=== PATIENT | male | born 1950 | race Caucasian/White ===

== ENCOUNTER 2016-12-31 10:01 | Outpatient (CLI) | payer MEDICAID, MEDICARE ==
--- NOTE | 2016-12-31 13:05 | DEXA Report ---
DEXA SCAN: 12/31/2016 CLINICAL INDICATION: History of fracture, long-term prednisone use, history of osteopenia. TECHNIQUE: Dual energy x-ray absorptiometry (DXA) was performed on a [employer] system. Regions measured are the AP spine, femoral neck, and, if needed, forearm. COMPARISON: None. In accordance with the International Society for Clinical Densitometry (ISCD) guidelines, data from previous exams may be reanalyzed using current recommendations and techniques. This is done to allow a more accurate basis for comparison with the current study. FINDINGS: The data for the lumbar spine is as follows: REGION BMD (g/cm/cm) T-SCORE Z-SCORE L1 0.816 -2.9 -2.3 L2 0.871 -3.1 -2.5 L3 0.899 -2.8 -2.3 L4 0.998 -2.0 -1.5 TOTAL 0.902 -2.7 -2.1 NOTE: All evaluable vertebrae are used for classification. The data for the hip is as follows: REGION BMD (g/cm/cm) T-SCORE Z-SCORE Neck 0.861 -1.6 -0.5 TOTAL 0.849 -1.7 -1.1 NOTE: The femoral neck or total proximal femur, whichever is lowest, is used for classification. IMPRESSION: THE WHO CLASSIFICATION BASED ON THE INTERNATIONAL REFERENCE STANDARD IS OSTEOPOROSIS. THE FRACTURE RISK IS HIGH. RECOMMENDATION: Patients with diagnosis of osteoporosis or osteopenia should have regular bone mineral density assessment. For those eligible for Medicare, routine testing is allowed once every 2 years. Testing frequency can be increased for patients who have rapidly progressing disease or for those who are receiving medical therapy to restore bone mass. COMMENT: World Health Organization (WHO) definitions for osteoporosis and osteopenia: NORMAL BMD: T-score at -1.0 or higher, fracture risk is low. OSTEOPENIA BMD: T-score between -1.0 and -2.5, fracture risk is increased. OSTEOPOROSIS BMD: T-score at -2.5 or lower, fracture risk high. National Osteoporosis Foundation recommends: 1. Obtain adequate dietary calcium (at least 1200 mg per day) and vitamin D (400 -800 international units per day). 2. Participate, as appropriate, in regular weightbearing and muscle- strengthening exercise. 3. Avoid tobacco use and reduce alcohol and caffeine intake. 4. For more detailed information see the website at www.NOF.org. MTDD
== END 2016-12-31 10:02 | disposition home or self-care (01) ==
LOC: DI 10:01
PROVIDERS: ATTEND Physician Assistant
DX: M81.0 Age-related osteoporosis without current pathological fracture (principal)
CPT/HCPCS: 77080

== ENCOUNTER 2017-07-17 11:23 | Outpatient (CLI) | payer MEDICARE ==
--- NOTE | 2017-07-17 19:45 | XRAY Report ---
DATE OF SERVICE: 07/17/2017 THREE VIEW RIGHT KNEE: 07/17/2017 CLINICAL INDICATION: Pain. AP, lateral, sunrise views of the right knee demonstrate no evidence of fracture or dislocation. The joint spaces are preserved. No effusion is present. IMPRESSION: Normal right knee. TD: 07/17/2017 20:43
== END 2017-07-17 11:24 | disposition home or self-care (01) ==
LOC: DI 11:23
PROVIDERS: ATTEND Physician Assistant
DX: M25.561 Pain in right knee (principal)

== ENCOUNTER 2019-06-09 10:45 | Outpatient (CLI) | payer MEDICARE ==
--- NOTE | 2019-06-09 13:35 | DEXA Report ---
Reason: AGE RELATED OSTEOPOROSIS W/O CURRENT PATH FRACT Procedure Date: 06/09/2019 Accession Number: [id number] / [id number] Procedure: DEX - Dexa Spine and/or Hip CPT Code: Final Report FULL RESULT: EXAM: Dexa Spine and/or Hip DATE: 06/09/2019 11:02 AM CLINICAL HISTORY: FOLLOW-UP OSTEOPOROSIS. Male patient. prison steroid use. TECHNIQUE: Dual energy x-ray absorptiometry (DXA) was performed on a [employer] System. Regions measured are the AP Spine, femoral neck, and if needed forearm. COMPARISON: 12/31/2016. In accordance with the International Society for Clinical Densitometry (ISCD) guidelines, data from previous exams may be reanalyzed using current recommendations and techniques. This is done to allow a more accurate basis for comparison with the current study. FINDINGS: The data for the lumbar spine is as follows: BMD (g/cm/cm) T-SCORE Z-SCORE REGION L1 0.879 -2.3 -1.8 L2 1.011 -1.9 -1.3 L3 1.070 -1.4 -0.8 L4 1.107 -1.1 -0.5 TOTAL 1.022 -1.6 -1.1 NOTE: All evaluable vertebrae are used for classification The data for the hip is as follows: BMD (g/cm/cm) T-SCORE Z-SCORE REGION Neck 0.873 -1.5 -0.3 TOTAL 0.874 -1.6 -0.9 NOTE: The femoral neck or total proximal femur, whichever is lowest, is used for classification. DXA RESULTS SUMMARY: Spine SCAN DATE A[age] BMD CHANGE VS CHANGE VS PREVIOUS PREVIOUS % [birth year]09[birth year]2019 [age] 1[age]022 0.120* 13.3* 12/31/2016 [age] 0.902 * Denotes significant change at the 95% confidence level. Denotes dissimilar scan types or analysis methods. DXA RESULTS SUMMARY: Hip SCAN DATE AGE BMD CHANGE VS CHANGE VS PREVIOUS PREVIOUS % [birth year]09[birth year]2019 [age] 0.874 0.025 2.9 12/31/2016 [age] 0.849 * Denotes significant change at the 95% confidence level. Denotes dissimilar scan types or analysis methods. IMPRESSION: THE WHO CLASSIFICATION BASED ON THE INTERNATIONAL REFERENCE STANDARD IS OSTEOPENIA, REFERENCE LUMBAR SPINE. THE FRACTURE RISK IS INCREASED. Comment: There has been a statistically significant increase in spine bone mineral density since 2017. RECOMMENDATION: Patients with diagnosis of osteoporosis or osteopenia should have regular bone mineral density assessment. For those eligible for Medicare, routine testing is allowed once every 2 years. Testing frequency can be increased for patients who have rapidly progressing disease or for those who are receiving medical therapy to restore bone mass. COMMENT: World Health Organization (WHO) definitions for osteoporosis and osteopenia: NORMAL BMD: T-score at -1.0 or higher, fracture risk is low OSTEOPENIA BMD: T-score between -1.0 and -2.5, fracture risk is increased. OSTEOPOROSIS BMD: T-score at -2.5 or lower, fracture risk is high. National Osteoporosis Foundation recommends: 1. Obtain adequate dietary calcium (at least 1200 mg per day) and vitamin D (400-800 international units per day). 2. Participate, as appropriate, in regular weightbearing and muscle-strengthening exercise. 3. Avoid tobacco use and reduce alcohol and caffeine intake. 4. For more detailed information see the website at www.NOF.org.
== END 2019-06-09 10:46 | disposition home or self-care (01) ==
LOC: DI 10:45
PROVIDERS: ATTEND Registered Nurse
DX: M85.89 Other specified disorders of bone density and structure, multiple sites (principal)
CPT/HCPCS: 77080

== ENCOUNTER 2019-10-29 15:14 | Outpatient (CLI) | payer MEDICARE ==
[2019-10-29] MEDS ORDERED: IOVERSOL 320 50 ML VIAL ONE (15:23)
[2019-10-29] MEDS ORDERED: IOVERSOL 320 100 ML VIAL IVP ONE ×2 (15:23→16:31)
[2019-10-29] MEDS ORDERED: IOVERSOL 320 50 ML VIAL PO ONE (16:31)
--- NOTE | 2019-10-31 03:00 | CT Report ---
Reason: UPPER ABD PAIN Procedure Date: 10/29/2019 Accession Number: [id number] / [id number] Procedure: CT - Abdomen/Pelvis W CPT Code: Final Report FULL RESULT: EXAM: CT ABDOMEN AND PELVIS EXAM DATE:10/29/2019 04:29 PM CLINICAL HISTORY: UPPER ABD PAIN. History of IBS and H. Pylori. 3 months of abdominal pain. COMPARISONS: None. TECHNIQUE: Routine helical CT imaging was performed through the abdomen and pelvis with OPTIRAY 320 IV contrast. Oral contrast: Yes. Reconstructions: Coronal and sagittal. In accordance with CT protocol optimization, one or more of the following dose reduction techniques were utilized for this exam: automated exposure control, adjustment of mA and/or KV based on patient size, or use of iterative reconstruction technique. FINDINGS: Lung Bases: Clear lung bases. No pleural effusion. Liver: Approximately 10-15 intermediate density lesions scattered throughout both lobes that range in size from 0.5-2.4 cm. One lesion at the right. Lobe segment 7/8 has peripheral nodular enhancement, which may reflect a hemangioma. However, the others are incompletely characterized. Gallbladder/Bile Ducts: Unremarkable. Spleen: Unremarkable. Pancreas: Unremarkable. Adrenal Glands: Unremarkable. Kidneys: Unremarkable. No hydronephrosis. Peritoneal Cavity/Bowel: The bowel is normal in caliber. No free fluid, free air or lymphadenopathy. The appendix is not visualized; however, no inflammatory changes at the base of the cecum. Pelvic Organs: Unremarkable. The bladder and visualized pelvic organs appear normal. Vasculature: Unremarkable. Bones: Unremarkable. Other: None. IMPRESSION: Multiple liver lesions. A dedicated multiphase liver MRI or CT is recommended for further characterization. RADIA
== END 2019-10-29 15:15 | disposition home or self-care (01) ==
LOC: DI 15:14
PROVIDERS: ATTEND Registered Nurse
DX: K76.9 Liver disease, unspecified (principal)
CPT/HCPCS: 74177; Q9967

== ENCOUNTER 2019-12-10 12:04 | Outpatient (CLI) | payer MEDICARE ==
[2019-12-10 12:45] LABS: CALCIUM 9.1 mg/dL (8.5-10.3); CREATININE 0.9 mg/dL (0.6-1.2)
== END 2019-12-10 12:05 | disposition home or self-care (01) ==
LOC: LAB 12:04
PROVIDERS: ATTEND Registered Nurse
DX: C16.9 Malignant neoplasm of stomach, unspecified (principal)
CPT/HCPCS: 36415; 80048; 81599

== ENCOUNTER 2019-12-10 12:28 | Outpatient (CLI) | payer MEDICARE ==
[2019-12-10] MEDS ORDERED: IOVERSOL 320 100 ML VIAL IVP ONE ×2 (13:03→14:16)
[2019-12-10] MEDS ORDERED: IOVERSOL 320 50 ML VIAL ONE (13:03)
[2019-12-10] MEDS ORDERED: IOVERSOL 320 50 ML VIAL PO ONE (14:16)
--- NOTE | 2019-12-13 16:56 | CT Report ---
PROCEDURE: CHEST W INDICATIONS: MALIGNANT NEOPLASM CONTRAST: IV CONTRAST: Optiray 320 ml: 100 PO CONTRAST: Optiray 320 ml50 TECHNIQUE: After the administration of intravenous contrast, 5 mm thick sections acquired from the pulmonary api maddie to the posterior costophrenic angles. 7 mm thick coronal MIP reformats were acquired. For radia tion dose reduction, the following was used: automated exposure control, adjustment of mA and/or kV according to patient size. COMPARISON: None. FINDINGS: Image quality: Excellent. Lungs and pleura: No acute air space opacities. No pleural effusions or pneumothorax. Central and peripheral airways are patent and normal in caliber. Mediastinum: Heart size is normal. No pericardial effusion. No mediastinal or hilar adenopathy by size criteria. Thoracic aorta and central pulmonary arteries are normal in size. Esophagus is gamaliel l in caliber. No hiatal hernia. Bones and chest wall: No suspicious bony lesions. No vertebral body compression fractures. No axil kaylin or supraclavicular adenopathy by size criteria. Thyroid gland is unremarkable. Abdomen: Multiple low-attenuation hepatic foci are present. Visualized upper abdominal solid organs appear normal. Upper abdominal bowel loops are normal in caliber. IMPRESSION: 1. No evidence of pulmonary metastatic disease. 2. Partially visualized multiple hepatic lesions consistent with metastatic disease. Please see CT ab domen pelvis of 12/10/2019 for further details Reviewed by: Lissette Steiner MD on 12/13/2019 4:55 PM PDT Approved by: Lissette Steiner MD on 12/13/2019 4:55 PM PDT Station ID: [id number]
--- NOTE | 2019-12-13 17:15 | CT Report ---
PROCEDURE: ABDOMEN/PELVIS W/WO INDICATIONS: MALIGNANT NEOPLASM CONTRAST: IV CONTRAST: Optiray 320 ml: 100 PO CONTRAST: Optiray 320 ml50 TECHNIQUE: After the administration of intravenous contrast, 5 mm thick sections acquired from the diaphragms to the symphysis. 5 mm thick coronal and sagittal reformats were acquired. For radiation dose reducti on, the following was used: automated exposure control, adjustment of mA and/or kV according to greg ent size. COMPARISON: None. FINDINGS: Image quality: Excellent. Lung bases: Lung bases are clear. Heart size is normal. Urinary system: Both kidneys are normal in size, without hydronephrosis or nephrolithiasis on pre-co ntrast images. No perinephric fat stranding. There is normal bilateral renal enhancement. Renal ca lyces appear normal in morphology when filled with contrast. Opacified portions of both ureters demo nstrate normal caliber. Bladder wall thickness is normal. No calcified bladder stones. Other solid organs: Liver and spleen are normal in size. Multiple low-density hepatic masses are pre sent, which have increased in size compared to the prior examination. Largest of these is within the lateral segment left hepatic lobe measuring 20 mm. The gallbladder is within normal limits Biliary s ystem is non dilated. Pancreas enhances normally. No adrenal nodules. Peritoneum and bowel: Bowel loops demonstrate normal wall thickness and caliber. No free fluid or a ir. Nodes and vessels: No retroperitoneal or mesenteric adenopathy by size criteria. Aorta and inferior vena cava are normal in size. Abdominal wall: No ventral hernias. Pelvis: No pathologic free pelvic fluid. No inguinal hernias or adenopathy. Bones: No suspicious bony lesions. No vertebral body compression fractures. IMPRESSION: 1. Increased hepatic metastatic disease. 2. Otherwise negative examination. Reviewed by: Jazmyne Manriquez MD on 12/13/2019 5:13 PM PDT Approved by: Jazmyne Manriquez MD on 12/13/2019 5:13 PM PDT Station ID: [id number]
== END 2019-12-10 12:29 | disposition home or self-care (01) ==
LOC: DI 12:28
PROVIDERS: ATTEND Registered Nurse
DX: C78.7 Secondary malignant neoplasm of liver and intrahepatic bile duct (principal)
CPT/HCPCS: 71260; 74178; Q9967

== ENCOUNTER 2020-01-09 12:29 | Inpatient (IN) | payer MEDICARE ==
[2020-01-09] MEDS ORDERED: SODIUM CHLORIDE 0.9% 1,000 ML IV STA (12:51)
--- NOTE | 2020-01-09 12:55 | ED Physician Documentation ---
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 Started R-CHOP chemotherapy 6 days ago via right chest wall [employer], being treated at [facility]. Starting yesterday he developed dark and tarry stools as well as generalized faintness and dizziness on top of his routine positional vertigo. He has not passed out. He has had progressive moderate abdominal pain which is not new recently. He is on twice daily omeprazole. Review of Systems Ten Systems: 10 systems reviewed and negative Nose: reports: Reviewed and negative Throat: reports: Reviewed and negative Cardiac: denies: Chest pain / pressure, Palpitations, Pedal edema, Calf pain Respiratory: denies: Dyspnea, Cough, Hemoptysis, Wheezing GI: reports: Reviewed and negative : reports: Reviewed and negative Skin: reports: Reviewed and negative Musculoskeletal: reports: Reviewed and negative Neurologic: reports: Reviewed and negative PD PAST MEDICAL HISTORY - Allergies Allergies/Adverse Reactions: Allergies Allergy/AdvReac Type Severity Reaction Status Date / Time Sulfa (Sulfonamide Allergy Anaphylaxis Verified 01/09/20 12:34 Antibiotics) Penicillins AdvReac Hives Verified 01/09/20 12:34 PD ED PE NORMAL - Vitals Vital signs reviewed: Yes (Normal vitals) - General General: Alert and oriented X 3, No acute distress, Other (Not particularly pale) - HEENT HEENT: PERRL, EOMI - Neck Neck: Supple, no meningeal sign, No bony TTP - Cardiac Cardiac: RRR, No murmur - Respiratory Respiratory: No respiratory distress, Clear bilaterally - Abdomen Abdomen: Soft, Non tender - Back Back: No CVA TTP, No spinal TTP - Derm Derm: Normal color, Warm and dry - Extremities Extremities: No edema, No calf tenderness / cord - Neuro Neuro: Alert and oriented X 3, Normal speech Results - Vitals Vitals: Vital Signs - 24 hr 01/09/20 01/09/20 12:34 13:01 Temperature 36.5 C Heart Rate 85 84 Respiratory 14 17 Rate Blood Pressure 106/61 112/74 O2 Saturation 100 100 Oxygen O2 Source Room air - Labs Labs: Laboratory Tests 01/09/20 01/09/20 01/09/20 13:49 13:49 13:49 WBC 6.0 RBC 3.28 L Hgb 10.9 L Hct 32.1 L MCV 97.9 H MCH 33.2 H MCHC 34.0 RDW 13.2 Plt Count 169 MPV 10.4 PT 13.5 H INR 1.2 Sodium 136 Potassium 4.0 Chloride 101 Carbon Dioxide 26 Anion Gap 9.0 BUN 18 Creatinine 0.7 Estimated GFR (MDRD) 112 Glucose 100 Calcium 8.5 Total Bilirubin 1.1 H AST 17 ALT 26 Alkaline Phosphatase 75 Total Protein 6.4 L Albumin 3.7 Globulin 2.7 Albumin/Globulin Ratio 1.4 Lipase 30 PD MEDICAL DECISION MAKING - ED course ED course: 69-year-old gentleman with gastric lymphoma presents with symptoms of upper GI bleeding. His hemodynamics are fine. Initial H&H is reassuring but note that we do not have any priors for comparison. We will place him in observation for serial H&H's. Spoke with the on-call surgeon, Dr. Kim who will see in consultation if he worsens. And I spoke with Dr. Oakley for observation 2:21 PM. Departure - Departure Disposition: ED Place in Observation Clinical Impression: Upper GI bleed, Gastric lymphoma Condition: Stable Comments: Please Copy my note to Jim Kimble MD Hematology/Oncology [facility] [address] [place] [address]
[2020-01-09 14:03] LABS: BASOPHILS % (AUTO) 1.2 %; EOSINOPHILS % (AUTO) 2.7 %; HGB - HEMOGLOBIN 10.9 g/dL (14.0-18.0); LYMPHOCYTES % (AUTO) 11.2 %; MEAN CORPUSCULAR HEMOGLOBIN 33.2 pg (27.0-31.0); MEAN CORPUSCULAR VOLUME 97.9 fL (80.0-94.0); MEAN PLATELET VOLUME 10.4 fL (7.4-11.4); MONOCYTES % (AUTO) 0.8 %; NEUTROPHILS % (AUTO) 70.6 %; PLT - PLATELET COUNT 169 10^3/uL (130-450); RED BLOOD COUNT 3.28 10^6/uL (4.70-6.10); RED CELL DISTRIBUTION WIDTH 13.2 % (12.0-15.0)
[2020-01-09 14:07] LABS: INR 1.2 (0.8-1.2); PT - PROTHROMBIN TIME 13.5 secs (9.9-12.6)
[2020-01-09 14:11] LABS: ABNORMAL LYMPHS % (MANUAL) 0 %
[2020-01-09 14:14] LABS: ALBUMIN 3.7 g/dL (3.2-5.5); ALBUMIN/GLOBULIN RATIO 1.4 (1.0-2.2); BILIRUBIN,TOTAL 1.1 mg/dL (0.2-1.0); CALCIUM 8.5 mg/dL (8.5-10.3); CREATININE 0.7 mg/dL (0.6-1.2); TOTAL PROTEIN 6.4 g/dL (6.7-8.2)
[2020-01-09 14:28] LABS: BAND NEUTROPHILS % (MANUAL) 12 %; EOSINOPHILS # (MANUAL) 0.1 10^3/uL (0-0.7); LYMPHOCYTES # (MANUAL) 1.2 10^3/uL (1.5-3.5); LYMPHOCYTES % (MANUAL) 20 %; MONOCYTES # (MANUAL) 0.1 10^3/uL (0.0-1.0)
[2020-01-09] MEDS ORDERED: SODIUM CHLORIDE FLUSH 0.9% 10 ML SYRINGE IVP PRN (14:28)
[2020-01-09 14:30] LABS: DIFFERENTIAL COMMENT MANUAL DIFFERENTIAL; PLATELET ESTIMATE, MANUAL NORMAL (130-450,000) (NORMAL); PLATELET MORPHOLOGY NORMAL APPEARANCE (NORMAL); RBC MORPHOLOGY (MULTIPLE) NORMAL APPEARANCE (NORMAL)
[2020-01-09] MEDS: ACETAMINOPHEN 325 MG TABLET PO PRN ×2 (15:17→20:20)
[2020-01-09] MEDS: ONDANSETRON 4 MG/2 ML VIAL IVP PRN (15:17)
--- NOTE | 2020-01-09 15:40 | PHARMACY PROGRESS NOTE ---
- Best Possible Medication History Admit Date and Time: 01/09/20 1425 Processed by: Pharmacy Medication History completed: Yes Patient Interview: Pt interview ONLY source As the person ultimately responsible for medication therapy, providers are able to order a medication from an existing home medication list in [facility] via the "Reconcile Routine" prior to Confirmation of that medication by therapeutic support staff. Such practice is discouraged except when the physician, in their clinical judgment, deems that a medical need exists for a medication without regard to previous use.
[2020-01-09] MEDS: SODIUM CHLORIDE FLUSH 0.9% 10 ML SYRINGE IVP SCH (16:40)
[2020-01-09] MEDS ORDERED: LORazepam 0.5 MG TABLET PO PRN (16:56)
[2020-01-09] MEDS: D5NS W/20 MEQ KCL 1,000 ML IV SCH (17:16)
[2020-01-09 19:14] LABS: HGB - HEMOGLOBIN 10.6 g/dL (14.0-18.0)
--- NOTE | 2020-01-09 19:38 | HISTORY & PHYSICAL EXAMINATION ---
DATE OF SERVICE: 01/09/2020 Physician: Augusta Oakley MD HISTORY OF PRESENT ILLNESS: This is a 69-year-old white male with a history of recently diagnosed gastric lymphoma, received his first R-CHOP treatment 6 days ago. He also has a list of medications such as high dose steroids, to take during the first few days of his chemo cycle. The patient developed dark and tarry stools 1 day ago, then started to feel lightheadedness on top of his usual positional vertigo. He has not had syncope. He then developed moderate abdominal pain and nausea and vomiting. He presented to the Emergency Room with these complaints today. In the ER, he was found to have a hemoglobin of 10.9. He is being placed in observation to monitor his hemoglobin during an acute upper GI bleed episode. The ER doctor discussed with Lily Weber and was told that this is usually self-limiting bleeding related to the R-CHOP treatment. PAST MEDICAL HISTORY: Recently diagnosed gastric lymphoma, otherwise a negative past medical history before that. ALLERGIES: SULFA AND PENICILLIN. MEDICATIONS 1. Tylenol p.r.n. 2. Zarxio 300 mg subcutaneously on certain days. 3. Omeprazole 20 mg b.i.d. 4. Zofran sublingual tablets p.r.n. 5. Prednisone 100 mg p.o. on days 1-5 of his cycle. 6. Compazine p.r.n. 7. Allopurinol 300 mg p.o. b.i.d. 8. Colace 100 mg t.i.d. 9. Lorazepam 0.5 mg every evening. 10. Venlafaxine ER 50 mg p.o. daily. REVIEW OF SYSTEMS: A comprehensive review of systems was performed and the pertinent positives are listed, the rest are negative. FAMILY HISTORY: No inherited diseases. SOCIAL HISTORY: The patient is a nonsmoker, no alcohol abuse history, no illicit drug use. PHYSICAL EXAMINATION GENERAL: Well-developed, middle-aged male who is currently sleeping, comfortable with no respiratory distress. VITAL SIGNS: Blood pressure 149/90, heart rate 70-80 in sinus rhythm, afebrile, room air saturation 100%. HEENT: Unremarkable. Moist oral mucosa. NECK: No JVD. CHEST: Clear. HEART: Normal heart sounds. ABDOMEN: Soft, nontender. EXTREMITIES: No clubbing, cyanosis or edema. NEUROLOGIC: Grossly intact. LABORATORY DATA: Normal electrolytes. Normal liver tests. Normal BUN and creatinine. Lipase normal. White blood count 6, hemoglobin 10.9 with MCV of 97, platelet count 169. He has 12% neutrophils on his differential. No urinalysis was done. His INR is 1.2. No imaging was done. No EKG was done. IMPRESSION/DIAGNOSES 1. Upper gastrointestinal bleed, likely related to his chemotherapy and steroid use. 2. Anemia 3. Gastric lymphoma. 4. Anxiety. PLAN: Place the patient in Observation status. Follow his hemoglobin q.6 hours. Give antiemetics. Start iv Protonix bid. Order bowel rest and start IV fluids. Restart diet with clear liquids and advance as tolerated, after several hours of bowel rest. Resume his anxiolytic medication. No general surgery consult for EGD will be ordered yet unless there is concern for acute or ongoing hemorrhage. CODE STATUS: FULL CODE. DEEP VENOUS THROMBOSIS PROPHYLAXIS: SCDs. TD: 01/09/2020 17:21 FRANNY
[2020-01-09] MEDS: allopurinoL 100 MG TABLET PO SCH (20:20)
[2020-01-09] MEDS: PANTOPRAZOLE 40 MG VIAL IVP SCH (20:20)
[2020-01-09] MEDS: DOCUSATE SODIUM 100 MG CAPSULE PO SCH (22:05)
[2020-01-10] MEDS: SODIUM CHLORIDE FLUSH 0.9% 10 ML SYRINGE IVP SCH ×3 (00:35→15:38)
[2020-01-10 00:41] LABS: HGB - HEMOGLOBIN 10.2 g/dL (14.0-18.0)
[2020-01-10] MEDS: D5NS W/20 MEQ KCL 1,000 ML IV SCH ×2 (02:45→12:58)
[2020-01-10] MEDS: DOCUSATE SODIUM 100 MG CAPSULE PO SCH ×3 (04:56→20:32)
[2020-01-10 05:43] LABS: BILIRUBIN,DIRECT 0.2 mg/dL (0.1-0.5); BILIRUBIN,TOTAL 0.9 mg/dL (0.2-1.0); CALCIUM 8.5 mg/dL (8.5-10.3); CREATININE 0.8 mg/dL (0.6-1.2); TOTAL PROTEIN 5.5 g/dL (6.7-8.2)
[2020-01-10 06:14] LABS: HGB - HEMOGLOBIN 9.9 g/dL (14.0-18.0)
[2020-01-10] MEDS: allopurinoL 100 MG TABLET PO SCH ×2 (09:22→20:31)
[2020-01-10] MEDS: ONDANSETRON 4 MG/2 ML VIAL IVP PRN ×2 (09:23→15:37)
[2020-01-10] MEDS: PANTOPRAZOLE 40 MG VIAL IVP SCH ×2 (09:23→20:32)
[2020-01-10] MEDS: VENLAFAXINE HCL 50 MG PO SCH (09:26)
[2020-01-10] MEDS: ACETAMINOPHEN 325 MG TABLET PO PRN ×2 (09:36→15:36)
[2020-01-10 10:48] LABS: HGB - HEMOGLOBIN 9.8 g/dL (14.0-18.0)
--- NOTE | 2020-01-10 15:32 | PROVIDER PROGRESS NOTE ---
Assessment/Plan - Problem List (1) Hypotension Assessment/Plan: This morning the supine blood pressure was 96 systolic. Because of his continuing slow drop in hemoglobin, I spoke to his Oncologist, Dr. Rivera at [facility] regarding his case, for advice on management. It is not safe to DCh pt from Observation status, due to his symptomatic hypotension, will admit to Inpt status Continue to follow serial H&H's. Treat the underlying cause of the upper GI bleed, presumably bleeding from the stomach. If he needs a transfusion, it needs to be irradiated. He may need endoscopy. (2) Orthostatic hypotension Assessment/Plan: He was symptomatic and BP was low (3) Upper GI bleed Assessment/Plan: This patient got his first R-CHOP treatment exactly a week ago. In his first 5 days of this course he took prednisone 100 mg daily. This may have added to a stress ulcer. Dr. 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 Will admit to full inpatient status and continue to monitor H&H, treat with antiemetics, volume replacement, possible (irradiated) PRBC transfusion, altered diet and antiulcer medications. Continue Protonix, will increase to 40 twice daily. He tolerated a pured diet but he follows a special kind of restrictive diet due to IBS, and therefore needs more choices and will therefore order a soft diet. Sabi, Graphite Pan Drier Tender, saw him and they discussed all the specifics today. Continue with antiemetics prn. (4) Anemia due to GI blood loss Assessment/Plan: Follow H&H every 6 to 8 hours. Will type and screen with an irradiated unit of blood for possible needed transfusion. 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 He is getting R-CHOP and was given anti-medics following the chemo 1 week ago, he only took it for 2 days, he knew he should have taken a longer. He also had high-dose steroids (100 mg prednisone daily) for the first 5 days. The patient was in contact with [facility], it was the Oncologist who advised him to come to the ER here. Dr. Rivera's number is [phone] or [phone]. His nurse Sheila's number is [phone], ext ?? (the patient has the info). (6) BPV (benign positional vertigo) Assessment/Plan: Patient said that he was able to tell the difference between his symptoms when he gets vertigo and today's lightheaded symptoms with this low blood pressure. (7) Anxiety Assessment/Plan: Continue his medications as at home. - Current Meds Current Meds: Current Medications Generic Name Dose Route Start Last Admin Trade Name Freq PRN Reason Stop Dose Admin Acetaminophen 650 mg 01/09/20 14:28 01/10/20 09:36 Tylenol PO 650 mg Q4HR PRN Administration Pain 1 to 4 Allopurinol 300 mg 01/09/20 21:00 01/10/20 09:22 Zyloprim PO 300 mg BID MARCIANO Administration Docusate Sodium 100 mg 01/09/20 22:00 01/10/20 13:01 Colace 100mg Capsule PO 100 mg TID MARCIANO Administration Potassium Chloride/Dextrose/Sod Cl 1,000 mls @ 40 mls/hr 01/10/20 10:40 01/10/20 12:58 IV 40 mls/hr .Q25H MARCIANO Administration Ondansetron HCl 4 mg 01/09/20 14:28 01/10/20 09:23 Zofran Inj IVP 4 mg Q6HR PRN Administration Nausea / Vomiting Pantoprazole Sodium 40 mg 01/09/20 21:00 01/10/20 09:23 Protonix IVP 40 mg BID MARCIANO Administration Venlafaxine Hcl [ 1 each 01/10/20 09:00 01/10/20 09:26 Effexor Xr] 50 Mg PO 1 each Capsule DAILY MARCIANO Administration Sodium Chloride 10 ml 01/09/20 17:00 01/10/20 09:24 Normal Saline Flush 0.9% IVP 10 ml 0100,0900,1700 MARCIANO Administration - Lab Result Fish Bone Diagrams: 01/10/20 10:45 01/10/20 04:35 - Additional Planning My Orders: My Active Orders 01/09/20 14:29 IV Insert [RC] .ONCE SCDs [RC] QSHIFT 01/09/20 16:56 LORazepam [Ativan] 0.5 mg PO QPM PRN 01/09/20 17:00 Sodium Chloride Flush 0.9% [Normal Saline Flush 0.9%] 10 ml IVP 0100,0900,1700 01/09/20 21:00 Pantoprazole [Protonix] 40 mg IVP BID allopurinoL [Zyloprim] 300 mg PO BID 01/09/20 22:00 Docusate Sodium 100Mg Capsule [Colace 100Mg Capsule] 100 mg PO TID 01/10/20 08:08 Orthostatic [Vital Signs - Orthostatic] [RC] DAILY 01/10/20 09:00 Patient Own Med [Patient Own Medication] 1 each PO DAILY 01/10/20 10:40 D5ns W/20 Meq KCl 1,000 ml IV 40 mls/hr 01/10/20 Lunch Dysphagia Puree Diet [DIET] 01/10/20 15:26 Admit [Admit \ Transfer \ Status] [RC] .ONCE 01/10/20 Dinner DIET [Soft (Low Fiber) Diet] [DIET] Subjective - Subjective Patient Reports: Other (Lightheaded with standing) Objective Vital Signs: Vital Signs - 24 hr 01/09/20 01/10/20 01/10/20 15:31 00:00 05:05 Temperature 36.3 C L 36.1 C L 36.0 C L Heart Rate [ 78 86 65 Brachial] Respiratory 18 18 16 Rate Blood Pressure 149/94 H 102/64 99/60 [Right Brachial artery] O2 Saturation 100 98 100 01/10/20 01/10/20 08:00 11:15 Temperature 36.5 C 36.4 C L Heart Rate [ 79 92 Brachial] Respiratory 16 16 Rate Blood Pressure 101/49 L 92/73 [Right Brachial artery] O2 Saturation 100 Oxygen O2 Source Room air I&O (Last 24 Hrs): Intake and Output Totals x24h 01/08/20 01/09/20 01/10/20 23:59 23:59 23:59 Intake Total 1260 2256.667 Balance 1260 2256.667 General: Alert, Oriented x3 HEENT: Mucous membr. moist/pink Neck: Supple, No JVD Neuro: Alert, Non Focal Cardiovascular: Regular rate, No murmurs Respiratory: No respiratory distress, Breath sounds nml, Other (Has port) Abdomen: Normal bowel sounds, Soft, Other (Normal bowel sounds) Extremities: No edema - Results Results: Laboratory Results WBC 6.0 x10^3/uL (4.8-10.8) 01/09/20 13:49 RBC 3.28 10^6/uL (4.70-6.10) L 01/09/20 13:49 Hgb 9.8 g/dL (14.0-18.0) L 01/10/20 10:45 Hct 28.6 % (42.0-52.0) L 01/10/20 10:45 MCV 97.9 fL (80.0-94.0) H 01/09/20 13:49 MCH 33.2 pg (27.0-31.0) H 01/09/20 13:49 MCHC 34.0 g/dL (32.0-36.0) 01/09/20 13:49 RDW 13.2 % (12.0-15.0) 01/09/20 13:49 Plt Count 169 10^3/uL (130-450) 01/09/20 13:49 MPV 10.4 fL (7.4-11.4) 01/09/20 13:49 Neut # (Auto) Not Reportable 01/09/20 13:49 Lymph # (Auto) Not Reportable 01/09/20 13:49 [place] # (Auto) Not Reportable 01/09/20 13:49 Eos # (Auto) Not Reportable 01/09/20 13:49 Baso # (Auto) Not Reportable 01/09/20 13:49 Absolute Nucleated RBC Not Reportable 01/09/20 13:49 Total Counted 100 01/09/20 13:49 Band Neuts % (Manual) 12 % (0-10) H 01/09/20 13:49 Abnorm Lymph % (Manual) 0 % 01/09/20 13:49 Nucleated RBC % Not Reportable 01/09/20 13:49 Neutrophils # (Manual) 4.7 10^3/uL (1.5-6.6) 01/09/20 13:49 Lymphocytes # (Manual) 1.2 10^3/uL (1.5-3.5) L 01/09/20 13:49 Monocytes # (Manual) 0.1 10^3/uL (0.0-1.0) 01/09/20 13:49 Eosinophils # (Manual) 0.1 10^3/uL (0-0.7) 01/09/20 13:49 Basophils # (Manual) 0.0 10^3/uL (0-0.1) 01/09/20 13:49 Differential Comment MANUAL DIFFERENTIAL 01/09/20 13:49 WBC Morphology 1+ TOXIC GRANULATION (NORMAL) 1+ DOHLE BODIES (NORMAL) 01/09/20 13:49 WBC Morphology 1+ TOXIC GRANULATION (NORMAL) 1+ DOHLE BODIES (NORMAL) 01/09/20 13:49 Platelet Estimate NORMAL (130-450,000) (NORMAL) 01/09/20 13:49 Platelet Morphology NORMAL APPEARANCE (NORMAL) 01/09/20 13:49 RBC Morph Micro Appear NORMAL APPEARANCE (NORMAL) 01/09/20 13:49 PT 13.5 secs (9.9-12.6) H 01/09/20 13:49 INR 1.2 (0.8-1.2) 01/09/20 13:49 Sodium 140 mmol/L (135-145) 01/10/20 04:35 Potassium 4.4 mmol/L (3.5-5.0) 01/10/20 04:35 Chloride 106 mmol/L (101-111) 01/10/20 04:35 Carbon Dioxide 25 mmol/L (21-32) 01/10/20 04:35 Anion Gap 9.0 (6-13) 01/10/20 04:35 BUN 13 mg/dL (6-20) 01/10/20 04:35 Creatinine 0.8 mg/dL (0.6-1.2) 01/10/20 04:35 Estimated GFR (MDRD) 96 (>89) 01/10/20 04:35 Glucose 109 mg/dL (70-100) H 01/10/20 04:35 Calcium 8.5 mg/dL (8.5-10.3) 01/10/20 04:35 Total Bilirubin 0.9 mg/dL (0.2-1.0) 01/10/20 04:35 Direct Bilirubin 0.2 mg/dL (0.1-0.5) 01/10/20 04:35 AST 17 IU/L (10-42) 01/10/20 04:35 ALT 32 IU/L (10-60) 01/10/20 04:35 Alkaline Phosphatase 61 IU/L (42-121) 01/10/20 04:35 Total Protein 5.5 g/dL (6.7-8.2) L 01/10/20 04:35 Albumin 3.0 g/dL (3.2-5.5) L 01/10/20 04:35 Globulin 2.5 g/dL (2.1-4.2) 01/10/20 04:35 Albumin/Globulin Ratio 1.4 (1.0-2.2) 01/09/20 13:49 Lipase 30 U/L (22-51) 01/09/20 13:49 Blood Type A POSITIVE 01/09/20 13:49 Blood Type Recheck A POSITIVE 01/09/20 13:56 Antibody Screen NEGATIVE 01/09/20 13:49
[2020-01-10] MEDS ORDERED: PROCHLORPERAZINE 10 MG/2 ML VIAL IVP PRN (15:44)
[2020-01-10 17:29] LABS: HGB - HEMOGLOBIN 10.1 g/dL (14.0-18.0)
[2020-01-10 22:52] LABS: HGB - HEMOGLOBIN 9.5 g/dL (14.0-18.0)
[2020-01-11] MEDS: SODIUM CHLORIDE FLUSH 0.9% 10 ML SYRINGE IVP SCH ×4 (00:47→23:48)
[2020-01-11] MEDS: ACETAMINOPHEN 325 MG TABLET PO PRN ×3 (04:23→21:48)
[2020-01-11] MEDS: DOCUSATE SODIUM 100 MG CAPSULE PO SCH ×3 (04:54→21:39)
[2020-01-11 05:02] LABS: HGB - HEMOGLOBIN 9.5 g/dL (14.0-18.0)
[2020-01-11] MEDS: ONDANSETRON 4 MG/2 ML VIAL IVP PRN (08:03)
[2020-01-11 08:37] LABS: BASOPHILS % (AUTO) 1.3 %; CALCIUM 8.6 mg/dL (8.5-10.3); CREATININE 0.7 mg/dL (0.6-1.2); EOSINOPHILS # (AUTO) 0.2 10^3/uL (0.0-0.7); EOSINOPHILS % (AUTO) 12.5 %; HGB - HEMOGLOBIN 9.4 g/dL (14.0-18.0); LYMPHOCYTES # (AUTO) 0.8 10^3/uL (1.5-3.5); LYMPHOCYTES % (AUTO) 55.3 %; MEAN CORPUSCULAR HEMOGLOBIN 32.6 pg (27.0-31.0); MEAN CORPUSCULAR HGB CONC 33.1 g/dL (32.0-36.0); MEAN CORPUSCULAR VOLUME 98.6 fL (80.0-94.0); MEAN PLATELET VOLUME 11.3 fL (7.4-11.4); MONOCYTES # (AUTO) 0.1 10^3/uL (0.0-1.0); MONOCYTES % (AUTO) 5.9 %; NEUTROPHILS % (AUTO) 23.7 %; PLT - PLATELET COUNT 175 10^3/uL (130-450); RED BLOOD COUNT 2.88 10^6/uL (4.70-6.10); RED CELL DISTRIBUTION WIDTH 13.2 % (12.0-15.0)
[2020-01-11 08:50] LABS: NEUTROPHILS # (AUTO) 0.4 10^3/uL (1.5-6.6); WHITE BLOOD COUNT 1.5 x10^3/uL (4.8-10.8)
[2020-01-11] MEDS: PANTOPRAZOLE 40 MG VIAL IVP SCH ×2 (08:50→21:38)
[2020-01-11] MEDS: VENLAFAXINE HCL 50 MG PO SCH (08:50)
[2020-01-11] MEDS: allopurinoL 100 MG TABLET PO SCH ×2 (08:50→21:38)
[2020-01-11] MEDS ORDERED: SODIUM CHLORIDE 0.9% 500 ML IV ONE (09:03)
[2020-01-11 09:54] LABS: RBC MORPHOLOGY (MULTIPLE) 1+ ANISOCYTOSIS (NORMAL)
--- NOTE | 2020-01-11 10:22 | PROVIDER PROGRESS NOTE ---
Subjective - Prog Note Date Prog Note Date: 01/11/20 - Subjective Pt reports feeling: Improved Subjective: Patient report mild abdominal pain but he stated this is his chronic status. He denies have bowel movement yet. He denies fever, chill, shortness of breathing. His hemoglobin slightly decreases. His systolic blood pressure is 91 to the morning. Patient's oncologist called and advised we continue his GCSF. patient WBC is 1.5 on today Current Medications - Current Medications Current Medications: Active Medications Acetaminophen (Tylenol) 650 mg PO Q4HR PRN PRN Reason: Pain 1 to 4 Last Admin: 01/11/20 04:23 Dose: 650 mg Documented by: Allopurinol (Zyloprim) 300 mg PO BID [facility] Last Admin: 01/11/20 08:50 Dose: 300 mg Documented by: Docusate Sodium (Colace 100mg Capsule) 100 mg PO TID [facility] Last Admin: 01/11/20 04:54 Dose: 100 mg Documented by: Heparin Sodium (Beef Lung) () 30 - 50 unit IVP PRN PRN PRN Reason: Port Protocol (<24 hours) Last Admin: 01/10/20 22:06 Dose: 50 unit Documented by: Potassium Chloride/Dextrose/Sod Cl () 1,000 mls @ 40 mls/hr IV .Q25H [facility] Last Admin: 01/10/20 12:58 Dose: 40 mls/hr Documented by: Lorazepam (Ativan) 0.5 mg PO QPM PRN PRN Reason: Anxiety Midodrine () 2.5 mg PO TID [facility] Ondansetron HCl (Zofran Inj) 4 mg IVP Q6HR PRN PRN Reason: Nausea / Vomiting Last Admin: 01/11/20 08:03 Dose: 4 mg Documented by: Pantoprazole Sodium (Protonix) 40 mg IVP BID [facility] Last Admin: 01/11/20 08:50 Dose: 40 mg Documented by: Venlafaxine Hcl [ Effexor Xr] 50 Mg Capsule 1 each PO DAILY [facility] Last Admin: 01/11/20 08:50 Dose: 1 each Documented by: Prochlorperazine Edisylate (Compazine Inj) 10 mg IVP Q6HR PRN PRN Reason: Nausea / Vomiting Sodium Chloride (Normal Saline Flush 0.9%) 10 ml IVP PRN PRN PRN Reason: NEEDED PER PROVIDER ORDERS Sodium Chloride (Normal Saline Flush 0.9%) 10 ml IVP 0100,0900,1700 MARCIANO Last Admin: 01/11/20 08:50 Dose: 10 ml Documented by: Acetaminophen [Tylenol Extra Strength] 500 mg PO PRN PRN 01/09/20 Docusate Sodium [Dulcolax Stool Softener] 100 mg PO TID 01/09/20 Filgrastim-Sndz [Zarxio] 300 mcg SUBQ .DAYS3-13CYCLE 01/09/20 LORazepam [Lorazepam] 0.5 mg PO QPM PRN 01/09/20 Omeprazole 20 mg PO BID 01/09/20 Ondansetron HCl [Zofran] 8 mg PO Q8H PRN 01/09/20 Prochlorperazine Maleate [Compazine] 10 mg PO Q6H PRN 01/09/20 Venlafaxine HCl [Effexor Xr] 50 mg PO DAILY 01/09/20 allopurinoL [Allopurinol] 300 mg PO BID 01/09/20 predniSONE [Deltasone] 100 mg PO .DAYS1-5CYCLE 01/09/20 Objective - Vital Signs/Intake & Output Vital Signs: Vital Signs x48h Temp Pulse Resp BP Pulse Ox 01/11/20 08:00 36.2 C L 79 14 91/47 L 98 Intake & Output: Intake & Output 01/08/20 01/09/20 01/10/20 01/11/20 23:59 23:59 23:59 23:59 Intake Total 1260 2456.667 1200 Balance 1260 2456.667 1200 - Objective General Appearance: positive: No acute distress, Alert. negative: Lethargic Eyes Bilateral: positive: Normal inspection, PERRL, No lid inflammation ENT: positive: ENT inspection nml, Pharynx nml, No signs of dehydration. negative: Purulent nasal drainage Neck: positive: Nml inspection, Thyroid nml, No JVD, Trachea midline. negative: Thyromegaly, Stiff neck, Tracheal deviation Respiratory: positive: Chest non-tender, No respiratory distress, Breath sounds nml. negative: Wheezes, Rales, Rhonchi Cardiovascular: positive: Regular rate & rhythm, No murmur, No gallop. negative: Irregularly irregular, Tachycardia, Bradycardia, Systolic murmur, Diastolic murmur Peripheral Pulses: 2+ Radial (R), 2+ Radial (L), 2+ Dorsalis pedis (R), 2+ Dorsalis pedis (L) Abdomen: positive: Non-tender, No organomegaly, Nml bowel sounds, No distention. negative: Tenderness, Guarding, Rebound Back: positive: Nml inspection. negative: CVA tenderness (R), CVA tenderness (L) Skin: positive: Color nml, No rash, Warm, Dry. negative: Cyanosis, Diaphoresis, Pallor Extremities: positive: Non-tender, Full ROM, Nml appearance. negative: Calf tenderness, Philip's sign/cords Neurologic/Psychiatric: positive: Oriented x3, Motor nml, Sensation nml, Mood/affect nml. negative: Weakness, Sensory loss, Facial droop, Slurred/abnml speech, Depressed mood/affect - Lab Results Fish Bones: 01/11/20 04:53 01/11/20 04:53 Other Labs: Lab Results x24hrs 01/11/20 01/11/20 01/11/20 Range/Units 04:53 04:53 04:53 WBC 1.5 L* (4.8-10.8) x10^3/uL RBC 2.88 L (4.70-6.10) 10^6/uL Hgb 9.4 L 9.5 L (14.0-18.0) g/dL Hct 28.4 L 27.7 L (42.0-52.0) % MCV 98.6 H (80.0-94.0) fL MCH 32.6 H (27.0-31.0) pg MCHC 33.1 (32.0-36.0) g/dL RDW 13.2 (12.0-15.0) % Plt Count 175 (130-450) 10^3/uL MPV 11.3 (7.4-11.4) fL Neut # (Auto) 0.4 L* (1.5-6.6) 10^3/uL Lymph # (Auto) 0.8 L (1.5-3.5) 10^3/uL [place] # (Auto) 0.1 (0.0-1.0) 10^3/uL Eos # (Auto) 0.2 (0.0-0.7) 10^3/uL Baso # (Auto) 0.0 (0.0-0.1) 10^3/uL Absolute Nucleated RBC 0.00 x10^3/uL Nucleated RBC % 0.0 /100WBC Manual Slide Review Indicated RBC Morph Micro Appear 1+ ANISOCYTOSIS (NORMAL) Sodium 138 (135-145) mmol/L Potassium 4.0 (3.5-5.0) mmol/L Chloride 106 (101-111) mmol/L Carbon Dioxide 25 (21-32) mmol/L Anion Gap 7.0 (6-13) BUN 11 (6-20) mg/dL Creatinine 0.7 (0.6-1.2) mg/dL Estimated GFR (MDRD) 112 (>89) Glucose 98 (70-100) mg/dL Calcium 8.6 (8.5-10.3) mg/dL 01/10/20 01/10/20 01/10/20 Range/Units 22:40 17:12 10:45 WBC (4.8-10.8) x10^3/uL RBC (4.70-6.10) 10^6/uL Hgb 9.5 L 10.1 L 9.8 L (14.0-18.0) g/dL Hct 27.7 L 30.3 L 28.6 L (42.0-52.0) % MCV (80.0-94.0) fL MCH (27.0-31.0) pg MCHC (32.0-36.0) g/dL RDW (12.0-15.0) % Plt Count (130-450) 10^3/uL MPV (7.4-11.4) fL Neut # (Auto) (1.5-6.6) 10^3/uL Lymph # (Auto) (1.5-3.5) 10^3/uL [place] # (Auto) (0.0-1.0) 10^3/uL Eos # (Auto) (0.0-0.7) 10^3/uL Baso # (Auto) (0.0-0.1) 10^3/uL Absolute Nucleated RBC x10^3/uL Nucleated RBC % /100WBC Manual Slide Review RBC Morph Micro Appear (NORMAL) Sodium (135-145) mmol/L Potassium (3.5-5.0) mmol/L Chloride (101-111) mmol/L Carbon Dioxide (21-32) mmol/L Anion Gap (6-13) BUN (6-20) mg/dL Creatinine (0.6-1.2) mg/dL Estimated GFR (MDRD) (>89) Glucose (70-100) mg/dL Calcium (8.5-10.3) mg/dL ABX Reporting Has patient been on IV antibiotics over the past 48 hours?: No Sepsis Event Note (H) - Evaluation Current Stage of Sepsis: Ruled out Assessment/Plan - Problem List (1) Hypotension Impression: (1) Hypotension Assessment/Plan: This morning the supine blood pressure was 91 systolic. Patient has been underlying chemotherapy 10 days ago for his gastro lymphoma and necrotic tumor. Also patient has R CHOP treatment for his lymphoma which including high dosage of prednisone, Right now patient is a hospital we hold patient's Prednisone because of his GI bleeding. We will check cortisol level for patient, give 500 normal saline intravenous for bolus, also ordered midodrive for patient 3 times daily. Continue vital signs monitor patient closely (2) Orthostatic hypotension Assessment/Plan: He was symptomatic and BP was low, We will have normal saline bolus, we will order midodrive for patient (3) Upper GI bleed Assessment/Plan: agree the assessment, This patient got his first R-CHOP treatment exactly a week ago. In his first 5 days of this course he took prednisone 100 mg daily. This may have added to a stress ulcer. Patient's hemoglobin is slightly decreases, we will continue H&H to monitor hemoglobin, patient has no bowel movement yet. We will do Occult stool blood test as well. Patient has history of gastro lymphoma and necrotic tumor, He is under for chemotherapy and finished chemotherapy 10 days ago. Patient has panocytopenia and anemia which can drive from chemotherapy side effect or lymphoma. If patient Hemoglobin continue to drop significantly then we may consult with GI surgeon for EGD to help healing of bleeding site Continue Protonix, will increase to 40 twice daily. (4) Anemia due to GI blood loss Assessment/Plan: continue Follow H&H every 6 to 8 hours, Will type and screen with an irradiated unit of blood for possible needed transfusion. (5) Gastric lymphoma Assessment/Plan: pt was Recently diagnosed gastric lymphoma. Dr. Rivera's number is [phone] or [phone]. His nurse Sheila's number is [phone], ext ?? (the patient has the info). Advised the patient continue follow-up with his oncologist, we will call his oncologist for consultation as needed (6) BPV (benign positional vertigo) Assessment/Plan: stable, Patient denies to have BPV. pt still has low blood pressure. We will advised the patient stand and walking slowly, we will give the patient perfusion and give pt midodrive medication (7) Anxiety Assessment/Plan: stable, Continue his medications as at home. (8) Irritable bowel syndrome consult with drone software development engineer, But patient WBC is at 1.5 today, patient will have neutropenia diet (9)pancytopenia Patient's WBC 1.5, and anemia hemoglobin 9.4, patient just had chemo therapy treated 10 days ago and patient has a history of lymphoma. Per The patient oncologist advised, we will continue GCSF medication, patient has a GCSF at his the home, we will reconcile the meds.
[2020-01-11] MEDS: MIDODRINE 2.5 MG TABLET PO SCH ×3 (10:43→21:38)
[2020-01-11 11:30] LABS: HGB - HEMOGLOBIN 9.3 g/dL (14.0-18.0)
[2020-01-11] MEDS: D5NS W/20 MEQ KCL 1,000 ML IV SCH (11:45)
[2020-01-11] MEDS: FILGRASTIM SNDZ SUBQ SCH (12:20)
[2020-01-11 17:26] LABS: HGB - HEMOGLOBIN 9.6 g/dL (14.0-18.0)
--- NOTE | 2020-01-11 21:50 | CONSULTATION NOTE ---
Referring Provider Consult Date: 01/11/20 History of Present Illness - History Obtained From History obtained from: Medical hospitalist Exam Limitations: Patient currently not available. In the bathroom - History of Present Illness HPI Comment/Other: Admitted to medicine with GI bleed. 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 He is a patient at [facility]. He recently received chemotherapy. His hct is slowly drifting downwards History - Past Medical History Cardiovascular: reports: None Respiratory: reports: None Neuro: reports: Migraines Endocrine/Autoimmune: reports: None GI: reports: Other : reports: None HEENT: reports: None Psych: reports: Anxiety Musculoskeletal: reports: None Derm: reports: None MRSA Hx?: No Other Past Medical History: positional vertigo. IBS. large cell b-lymphoma - Past Surgical History General: reports: Appendectomy, Gastric surgery, EGD Meds/Allgy - Home Medications Home Medications: Ambulatory Orders Medication Instructions Recorded Confirmed Acetaminophen [Tylenol Extra 500 mg PO PRN PRN 01/09/20 01/09/20 Strength] Docusate Sodium [Dulcolax Stool 100 mg PO TID 01/09/20 01/09/20 Softener] Filgrastim-Sndz [Zarxio] 300 mcg SUBQ .DAYS3-13CYCLE 01/09/20 01/09/20 LORazepam [Lorazepam] 0.5 mg PO QPM PRN 01/09/20 01/09/20 Omeprazole 20 mg PO BID 01/09/20 01/09/20 Ondansetron HCl [Zofran] 8 mg PO Q8H PRN 01/09/20 01/09/20 Prochlorperazine Maleate 10 mg PO Q6H PRN 01/09/20 01/09/20 [Compazine] Venlafaxine HCl [Effexor Xr] 50 mg PO DAILY 01/09/20 01/09/20 allopurinoL [Allopurinol] 300 mg PO BID 01/09/20 01/09/20 predniSONE [Deltasone] 100 mg PO .DAYS1-5CYCLE 01/09/20 01/09/20 - Allergies Allergies/Adverse Reactions: Allergies Allergy/AdvReac Type Severity Reaction Status Date / Time Sulfa (Sulfonamide Allergy Anaphylaxis Verified 01/09/20 12:34 Antibiotics) lactose AdvReac Cramps Verified 01/10/20 14:42 Penicillins AdvReac Hives Verified 01/09/20 12:34 Exam - Vital Signs Vital Signs: Vital Signs x48h Temp Pulse Pulse Resp BP Pulse Ox 01/11/20 16:00 36.7 C 81 16 112/63 99 01/11/20 13:54 36.2 C L 80 16 98 Conclusion and Plan - Lab Results Microbiology Results 01/11/20 18:35 Stool Occult Blood - Final Laboratory Results 01/11/20 17:15: Hgb 9.6 L, Hct 27.8 L 01/11/20 11:11: Hgb 9.3 L, Hct 27.3 L 01/11/20 04:53: Sodium 138, Potassium 4.0, Chloride 106, Carbon Dioxide 25, Anion Gap 7.0, BUN 11, Creatinine 0.7, Estimated GFR (MDRD) 112, Glucose 98, Calcium 8.6 01/11/20 04:53: WBC 1.5 L*, RBC 2.88 L, Hgb 9.4 L, Hct 28.4 L, MCV 98.6 H, MCH 32.6 H, MCHC 33.1, RDW 13.2, Plt Count 175, MPV 11.3, Neut # (Auto) 0.4 L*, Lymph # (Auto) 0.8 L, [place] # (Auto) 0.1, Eos # (Auto) 0.2, Baso # (Auto) 0.0, Absolute Nucleated RBC 0.00, Nucleated RBC % 0.0, Manual Slide Review Indicated, RBC Morph Micro Appear 1+ ANISOCYTOSIS 01/11/20 04:53: Hgb 9.5 L, Hct 27.7 L 01/10/20 22:40: Hgb 9.5 L, Hct 27.7 L 01/10/20 17:12: Hgb 10.1 L, Hct 30.3 L 01/10/20 10:45: Hgb 9.8 L, Hct 28.6 L 01/10/20 04:35: Sodium 140, Potassium 4.4, Chloride 106, Carbon Dioxide 25, Anion Gap 9.0, BUN 13, Creatinine 0.8, Estimated GFR (MDRD) 96, Glucose 109 H, Calcium 8.5, Total Bilirubin 0.9, Direct Bilirubin 0.2, AST 17, ALT 32, Alkaline Phosphatase 61, Total Protein 5.5 L, Albumin 3.0 L, Globulin 2.5 01/10/20 04:35: Hgb 9.9 L, Hct 29.4 L 01/10/20 00:25: Hgb 10.2 L, Hct 29.8 L - Diagnosis Diagnosis: Gi bleed most certainly from his gastric lymphoma - Plan Plan: If he continues to have bleeding I recommend he be transferred to [facility] where he gets his treatment for gastric lymphoma. I believe if the bleeding continues he will need to be seen and treated at a facility that can offer a higher level of care. GI lymphoma tends to be a diffuse process and I do not believe we have the resources to stop bleeding from gastric lymphoma.
[2020-01-12] LABS: HGB - HEMOGLOBIN 8.7 g/dL (14.0-18.0)
[2020-01-12] MEDS: DOCUSATE SODIUM 100 MG CAPSULE PO SCH ×2 (06:26→14:27)
[2020-01-12] MEDS: MIDODRINE 2.5 MG TABLET PO SCH (06:28)
[2020-01-12 06:47] LABS: BASOPHILS % (AUTO) 0.6 %; EOSINOPHILS # (AUTO) 0.2 10^3/uL (0.0-0.7); EOSINOPHILS % (AUTO) 11.2 %; HGB - HEMOGLOBIN 9.4 g/dL (14.0-18.0); LYMPHOCYTES # (AUTO) 0.8 10^3/uL (1.5-3.5); LYMPHOCYTES % (AUTO) 50.3 %; MEAN CORPUSCULAR HEMOGLOBIN 33.6 pg (27.0-31.0); MEAN CORPUSCULAR HGB CONC 34.4 g/dL (32.0-36.0); MEAN CORPUSCULAR VOLUME 97.5 fL (80.0-94.0); MEAN PLATELET VOLUME 10.4 fL (7.4-11.4); MONOCYTES # (AUTO) 0.3 10^3/uL (0.0-1.0); MONOCYTES % (AUTO) 18.6 %; NEUTROPHILS % (AUTO) 18.1 %; PLT - PLATELET COUNT 165 10^3/uL (130-450); RED CELL DISTRIBUTION WIDTH 12.9 % (12.0-15.0)
[2020-01-12 06:49] LABS: CALCIUM 8.5 mg/dL (8.5-10.3); CREATININE 0.7 mg/dL (0.6-1.2)
[2020-01-12 07:31] LABS: NEUTROPHILS # (AUTO) 0.3 10^3/uL (1.5-6.6); WHITE BLOOD COUNT 1.6 x10^3/uL (4.8-10.8)
[2020-01-12 07:33] LABS: DIFFERENTIAL COMMENT MANUAL=AUTO DIFF; PLATELET ESTIMATE, MANUAL NORMAL (130-450,000) (NORMAL); PLATELET MORPHOLOGY NORMAL APPEARANCE (NORMAL); RBC MORPHOLOGY (MULTIPLE) 1+ HYPOCHROMASIA (NORMAL)
[2020-01-12] MEDS ORDERED: D5NS W/20 MEQ KCL 1,000 ML IV SCH (07:47)
[2020-01-12] MEDS ORDERED: IOVERSOL 320 100 ML VIAL IVP ONE ×2 (08:20→13:21)
[2020-01-12] MEDS ORDERED: methylPREDNISolone SUCCINATE 40 MG/ML VIAL IVP STA (08:20)
[2020-01-12] MEDS ORDERED: diphenhydrAMINE INJ 50 MG/ML VIAL IVP STA (08:21)
[2020-01-12] MEDS: VENLAFAXINE HCL 50 MG PO SCH (08:43)
[2020-01-12] MEDS: FILGRASTIM SNDZ SUBQ SCH (09:15)
[2020-01-12] MEDS: allopurinoL 100 MG TABLET PO SCH (09:17)
[2020-01-12] MEDS: PANTOPRAZOLE 40 MG VIAL IVP SCH (09:18)
[2020-01-12] MEDS: SODIUM CHLORIDE FLUSH 0.9% 10 ML SYRINGE IVP SCH (09:18)
--- NOTE | 2020-01-12 10:35 | CT Report ---
PROCEDURE: Abdomen/Pelvis W INDICATIONS: abdominal pain and GI bleed CONTRAST: IV CONTRAST: Optiray 320 ml: 100 PO CONTRAST: *NO PO CONTRAST TECHNIQUE: After the administration of oral and intravenous contrast, 5 mm thick sections acquired from the diap hragms to the symphysis. 5 mm thick coronal and sagittal reformats were acquired. For radiation dos e reduction, the following was used: automated exposure control, adjustment of mA and/or kV accordin g to patient size. COMPARISON: CT abdomen and pelvis without and with IV contrast 12/10/2019. CT abdomen and pelvis with IV contrast 10/29/2019. FINDINGS: Image quality: Excellent. ABDOMEN: Lung bases: Lung bases are clear. Heart size is normal. Central venous line tip extending into the right atrium. Solid organs: Multiple hypodense hepatic lesions most compatible with metastatic disease. For example : -Segment 3 subcapsular measuring 1.9 x 1 similar, (), previously 1.6 x 1.2 cm on 10/29/2019. -Segment 8 measuring up 1.2 x 1.2 cm, previously 1.2 x 1 cm. Hypodense lesion in segment 7 measuring approximately 1.5 cm, (09/09). This demonstrated peripheral no dular discontinuous enhancement on the prior CT and is most compatible with a benign hemangioma. Gallbladder is decompressed. No calcified gallstones seen. Biliary system is non dilated. Pancreas enhances normally. No adrenal nodules. Spleen is unremarkable. Kidneys demonstrate normal size and e nhancement, without hydronephrosis. Peritoneum and bowel: Stomach is fluid-filled. There is increased conspicuity of the gastric mucosa. No obvious contrast extravasation on this portal venous phase CT. Bowel loops demonstrate normal wal l thickness and caliber. No significant diverticulosis. No free fluid or air. Nodes and vessels: No retroperitoneal or mesenteric adenopathy by size criteria. Aorta and inferior vena cava are normal in size. Miscellaneous: No ventral hernias. PELVIS: Genitourinary: Bladder wall thickness is normal. Miscellaneous: Small fat-containing right inguinal hernia. No adenopathy seen. Bones: No suspicious bony lesions. No vertebral body compression fractures. IMPRESSION: 1. No free fluid in the abdomen or pelvis. No definite acute inflammatory process identified. Gastric mucosal enhancement may be increased. 2. No small bowel obstructive. 3. Multiple hypodense hepatic lesions most compatible with metastatic disease. A few of these lesions are slightly increased in size compared to 10/29/2019. 4. No new sites of metastatic disease identified in the abdomen or pelvis. No adenopathy. No ascites. Reviewed by: Johnson Beyer MD on 01/12/2020 10:33 AM PDT Approved by: Johnson Beyer MD on 01/12/2020 10:33 AM PDT Station ID: [id number]
[2020-01-12 12:44] LABS: HGB - HEMOGLOBIN 9.5 g/dL (14.0-18.0)
[2020-01-12] MEDS ORDERED: MIDODRINE 2.5 MG TABLET PO SCH (13:51)
--- NOTE | 2020-01-12 14:06 | Discharge Plan ---
Discharge Plan Problem Reviewed?: Yes Disposition: Home, Self Care Condition: Poor Prescriptions: Midodrine 2.5 mg PO TID@0600,1200,1800 #30 tablet Omeprazole 40 mg PO BID #20 capsule. Diet: Regular Activity Restrictions: Activity as Tolerated Shower Restrictions: No (fall precaution) Instruction Topics: Bleeding Gastrointestinal, Omeprazole tablets OTC, Midodrin e tablets, Neutropenia Health Concerns: GI bleeding, neutropenia, gastric lymphoma Plan of Treatment: your HGB is stable and slight increased. You do not have bowel movement on today. your home omeprazole dosage is increased to 40 mg bid. advise you followup with your oncologist on this Friday, and followup with your PCP on early next week to have CBC to monitor your HGB, meanwhile if you still has GI bleed, please return to ER or call 911 for help. you still has neutropenia, it seems from your recent chemotherapy side effect, you have no fever or chill in hospital. advise you followup with your oncologist and continue your GCSF medication regimens. IF you feel fever, chill, please call 911 or return ER for help. Care Goals: stabilization and improvement of your medical conditions. Assessment: discussed with you about the image studies and care plan, you understood and agreed. Additional Instructions or Follow Up instructions: You may followup with your PCP in one week and followup with your oncologist in this Friday01/14/2020 and have CBC blood work done in one week. Should your symptoms return or worsen, you may present ER or call 911 for help. No Smoking: If you smoke, Please STOP! Call for help. Follow-up with: Shama Maldonado ARNP [Primary Care Provider] -
--- NOTE | 2020-01-12 14:27 | DISCHARGE SUMMARY ---
Discharge Summary Admit Date: 01/10/20 Discharge Date: 01/12/20 Discharging Provider: Boy Rivera Primary Care Provider: Shama Woods Condition at Discharge: Poor Discharge Disposition: 01 Home, Self Care Discharge Facility Name: home - DIAGNOSES Discharge Diagnoses with Status of Each Condition: (1) Hypotension Stable. Patient's BP at 121/60 on d/c. Patient is prescribed a low dosage of midodrine. (2) Upper GI bleed Patient hemoglobin is stable and slightly increased. Patient had no bowel movement. Patient was advised to watch her bowel movement closely if he still has GI bleed, black stool or bloody stool, advised patient go to the ER for further management. Patient states he understand and will do that. advise pt followup with his oncologist or PCP to have CBC test to monitor HGB/WBC again. (3) Anemia due to GI blood loss Stable. (4) Gastric lymphoma stable. Patient will follow-up with his oncologist on January 14, 2020. Discussed with the patient for results of his CAT scan of abdomen. (5) BPV (benign positional vertigo) resolved. Patient has no complaints for vertigo (6) Anxiety stable, Continue his medications as at home. (7) Irritable bowel syndrome Stable, consult with head tennis professional (8)pancytopenia Patient's WBC 1.6, it is likely from pt's recent chemotherapy side effect. continue GCSF medication as his home meds. advise pt closely monitor if he has fever, chill, if positive, return to ER. - HPI History of Present Illness: This is a 69 years old white male with history of recent diagnosis gastric lymphoma, Who presented ER for complaint dark and tarry stool 1 day ago. His hemoglobin is 10.9 at his admission. Patient also complain started to have lightheaded and position vertigo. Patient received his first R CHOP treatment 6 days ago. ER physician discussed with with [facility] and was told that this is usually self-limited bleeding related to the R CHOP treatment. Patient was admitted for further management - HOSPITAL COURSE Hospital Course: Patient was admitted for black stool, GI bleeding. It is likely from patient chemotherapy R CHOP treatment 6 days ago. Patient was consulted with GI surgeon. Patient continue to have H&H to monitor hemoglobin. Patient also was given intravenous Protonix twice daily. General surgeon did not do the EGD or colonoscopy for patient. Patient also develop pancytopenia, It is likely caused by recently chemotherapy. Patient was given Patient's home medication, GCSF advised by patient oncologist in [facility]. Patient has no fever or chilling in the hospital. Patient hemoglobin was a slightly reduced but then stable and increased again. ER physician discussed with with [facility] and was told that this is usually self-limited bleeding related to the R CHOP treatment. Patient's symptoms of lightheaded and vertigo was resolved in the hospital. Patient's hypotension was also resolved after the patient was give midodrine and hydration medication. Patient was advised to return to hospital if his GI bleeding return or has temperature. Patient was also advised to keep hydration. Patient was prescribed Midodrine medication on discharge. Patient discharged as Hemodynamic stable condition. In the d/c vital signal, pt's temperature is 34 degree, nurse did not report me this condition. It is likely inaccurate, pt has never low temperature in the hospital. pt did never report any cold symptoms in the hospital. - ALLERGIES Allergies/Adverse Reactions: Allergies Allergy/AdvReac Type Severity Reaction Status Date / Time Sulfa (Sulfonamide Allergy Anaphylaxis Verified 01/09/20 12:34 Antibiotics) lactose AdvReac Cramps Verified 01/10/20 14:42 Penicillins AdvReac Hives Verified 01/09/20 12:34 - MEDICATIONS Home Medications: Ambulatory Orders Medication Instructions Recorded Confirmed Acetaminophen [Tylenol Extra 500 mg PO PRN PRN 01/09/20 01/09/20 Strength] Docusate Sodium [Dulcolax Stool 100 mg PO TID 01/09/20 01/09/20 Softener] Filgrastim-Sndz [Zarxio] 300 mcg SUBQ .DAYS3-13CYCLE 01/09/20 01/09/20 LORazepam [Lorazepam] 0.5 mg PO QPM PRN 01/09/20 01/09/20 Ondansetron HCl [Zofran] 8 mg PO Q8H PRN 01/09/20 01/09/20 Prochlorperazine Maleate 10 mg PO Q6H PRN 01/09/20 01/09/20 [Compazine] Venlafaxine HCl [Effexor Xr] 50 mg PO DAILY 01/09/20 01/09/20 allopurinoL [Allopurinol] 300 mg PO BID 01/09/20 01/09/20 predniSONE [Deltasone] 100 mg PO .DAYS1-5CYCLE 01/09/20 01/09/20 Midodrine 2.5 mg PO TID@0600,1200,1800 #30 01/12/20 tablet Omeprazole 40 mg PO BID #20 capsule. 01/12/20 - PHYSICAL EXAM AT DISCHARGE General Appearance: positive: No acute distress, Alert. negative: Lethargic Eyes Bilateral: positive: Normal inspection, PERRL, No lid inflammation ENT: positive: ENT inspection nml, Pharynx nml, No signs of dehydration. negative: Purulent nasal drainage Neck: positive: Nml inspection, Thyroid nml, Trachea midline. negative: Thyromegaly, Stiff neck Respiratory: positive: Chest non-tender, No respiratory distress, Breath sounds nml. negative: Wheezes, Rales, Rhonchi Cardiovascular: positive: Regular rate & rhythm, No murmur, No gallop. negative: Tachycardia, Bradycardia, Systolic murmur, Diastolic murmur Peripheral Pulses: positive: 2+ Abdomen: positive: Non-tender, No organomegaly, Nml bowel sounds, No distention. negative: Tenderness, Guarding, Rebound Back: positive: Nml inspection. negative: CVA tenderness (R), CVA tenderness (L) Skin: positive: Color nml, No rash, Warm, Dry. negative: Cyanosis, Diaphoresis, Pallor Extremities: positive: Non-tender, Full ROM, Nml appearance. negative: Calf tenderness, Philip's sign/cords Neurologic/Psychiatric: positive: Oriented x3, Motor nml, Sensation nml, Mood/affect nml. negative: Weakness, Sensory loss, Facial droop, Slurred/abnml speech, Depressed mood/affect - LABS Result Diagrams: 01/12/20 12:15 01/12/20 06:30 - SEPSIS Current Stage of Sepsis: Ruled out - FOLLOW UP Follow Up: your HGB is stable and slight increased. You do not have bowel movement on today. your home omeprazole dosage is increased to 40 mg bid. advise you followup with your oncologist on this Friday, and followup with your PCP on early next week to have CBC to monitor your HGB, meanwhile if you still has GI bleed, please return to ER or call 911 for help. you still has neutropenia, it seems from your recent chemotherapy side effect, you have no fever or chill in hospital. advise you followup with your oncologist and continue your GCSF medication regimens. IF you feel fever, chill, please call 911 or return ER for help. You may followup with your PCP in one week and followup with your oncologist in this Friday01/14/2020 and have CBC blood work done in one week. Should your symptoms return or worsen, you may present ER or call 911 for help. - TIME SPENT Time Spent in Discharge (Minutes): 30
[2020-01-12 15:44] VITALS: BP 121/60
== END 2020-01-12 15:35 | disposition home or self-care (01) | DRG 377 ==
LOC: ED 12:29 → MS2 14:25 → OBSVTOIN 15:26
PROVIDERS: ADMIT Internal Medicine; ATTEND Nurse Practitioner Gerontology
DX: K92.2 Gastrointestinal hemorrhage, unspecified (principal); D64.9 Anemia, unspecified; C85.99 Non-Hodgkin lymphoma, unspecified, extranodal and solid organ sites; D61.810 Antineoplastic chemotherapy induced pancytopenia; C83.59 Lymphoblastic (diffuse) lymphoma, extranodal and solid organ sites; F41.9 Anxiety disorder, unspecified; T45.1X5A Adverse effect of antineoplastic and immunosuppressive drugs, initial encounter; I95.1 Orthostatic hypotension; D50.0 Iron deficiency anemia secondary to blood loss (chronic); H81.10 Benign paroxysmal vertigo, unspecified ear; K58.9 Irritable bowel syndrome, unspecified
CPT/HCPCS: 36415; 74177; 80048; 80053; 80076; 82272; 82533; 83690; 85014; 85018; 85025; 85610; 86850; 86900; 86901; 96361; 96365; 96366; 96375; 96376; 99284; 99285; A9270; G0378; J1200; Q5101; Q9967

== ENCOUNTER 2020-01-14 15:51 | Outpatient (CLI) | payer MEDICARE ==
[2020-01-14 16:08] LABS: BASOPHILS % (AUTO) 0.2 %; HGB - HEMOGLOBIN 9.6 g/dL (14.0-18.0); LYMPHOCYTES % (AUTO) 8.3 %; MEAN CORPUSCULAR HEMOGLOBIN 33.4 pg (27.0-31.0); MEAN CORPUSCULAR HGB CONC 33.7 g/dL (32.0-36.0); MEAN CORPUSCULAR VOLUME 99.3 fL (80.0-94.0); MEAN PLATELET VOLUME 9.8 fL (7.4-11.4); MONOCYTES % (AUTO) 10.7 %; NEUTROPHILS % (AUTO) 71.4 %; PLT - PLATELET COUNT 177 10^3/uL (130-450); RED BLOOD COUNT 2.87 10^6/uL (4.70-6.10); RED CELL DISTRIBUTION WIDTH 13.7 % (12.0-15.0); WHITE BLOOD COUNT 16.2 x10^3/uL (4.8-10.8)
[2020-01-14 16:13] LABS: ABNORMAL LYMPHS % (MANUAL) 0 %
[2020-01-14 16:20] LABS: ALBUMIN 3.6 g/dL (3.2-5.5); ALBUMIN/GLOBULIN RATIO 1.4 (1.0-2.2); BILIRUBIN,TOTAL 0.6 mg/dL (0.2-1.0); CALCIUM 8.9 mg/dL (8.5-10.3); CREATININE 0.8 mg/dL (0.6-1.2); TOTAL PROTEIN 6.1 g/dL (6.7-8.2)
[2020-01-14 16:25] LABS: BAND NEUTROPHILS % (MANUAL) 27 %; EOSINOPHILS # (MANUAL) 0.2 10^3/uL (0-0.7); LYMPHOCYTES # (MANUAL) 0.6 10^3/uL (1.5-3.5); LYMPHOCYTES % (MANUAL) 4 %; PLATELET ESTIMATE, MANUAL NORMAL (130-450,000) (NORMAL); PLATELET MORPHOLOGY NORMAL APPEARANCE (NORMAL); RBC MORPHOLOGY (MULTIPLE) NORMAL APPEARANCE (NORMAL)
[2020-01-14 16:26] LABS: DIFFERENTIAL COMMENT MANUAL DIFFERENTIAL
== END 2020-01-14 15:52 | disposition home or self-care (01) ==
LOC: LAB 15:51
PROVIDERS: ATTEND Internal Medicine Hematology & Oncology
DX: C83.30 Diffuse large B-cell lymphoma, unspecified site (principal)
CPT/HCPCS: 36415; 80053; 85025; 86850; 86900; 86901

== ENCOUNTER 2020-02-11 10:01 | Outpatient (CLI) | payer MEDICARE ==
[2020-02-11 10:16] LABS: BASOPHILS % (AUTO) 0.8 %; EOSINOPHILS % (AUTO) 1.2 %; HGB - HEMOGLOBIN 10.7 g/dL (14.0-18.0); LYMPHOCYTES # (AUTO) 0.7 10^3/uL (1.5-3.5); LYMPHOCYTES % (AUTO) 27.7 %; MEAN CORPUSCULAR HEMOGLOBIN 34.2 pg (27.0-31.0); MEAN CORPUSCULAR HGB CONC 33.2 g/dL (32.0-36.0); MEAN CORPUSCULAR VOLUME 102.9 fL (80.0-94.0); MEAN PLATELET VOLUME 9.6 fL (7.4-11.4); MONOCYTES # (AUTO) 0.6 10^3/uL (0.0-1.0); MONOCYTES % (AUTO) 23.3 %; NEUTROPHILS # (AUTO) 1.1 10^3/uL (1.5-6.6); NEUTROPHILS % (AUTO) 45.4 %; PLT - PLATELET COUNT 168 10^3/uL (130-450); RED BLOOD COUNT 3.13 10^6/uL (4.70-6.10); RED CELL DISTRIBUTION WIDTH 18.4 % (12.0-15.0); WHITE BLOOD COUNT 2.5 x10^3/uL (4.8-10.8)
[2020-02-11 10:34] LABS: ALBUMIN 3.9 g/dL (3.2-5.5); ALBUMIN/GLOBULIN RATIO 1.6 (1.0-2.2); BILIRUBIN,TOTAL 0.6 mg/dL (0.2-1.0); CALCIUM 8.7 mg/dL (8.5-10.3); CREATININE 0.8 mg/dL (0.6-1.2); TOTAL PROTEIN 6.4 g/dL (6.7-8.2)
[2020-02-11 10:57] LABS: RBC MORPHOLOGY (MULTIPLE) 3+ ANISOCYTOSIS (NORMAL)
== END 2020-02-11 10:02 | disposition home or self-care (01) ==
LOC: LAB 10:01
PROVIDERS: ATTEND Internal Medicine Hematology & Oncology
DX: C85.90 Non-Hodgkin lymphoma, unspecified, unspecified site (principal); D64.9 Anemia, unspecified
CPT/HCPCS: 36415; 80053; 82728; 83540; 83615; 84466; 85025

== ENCOUNTER 2020-03-03 09:06 | Outpatient (CLI) | payer MEDICARE ==
[2020-03-03 09:39] LABS: BASOPHILS % (AUTO) 1.2 %; EOSINOPHILS # (AUTO) 0.1 10^3/uL (0.0-0.7); EOSINOPHILS % (AUTO) 2.1 %; HGB - HEMOGLOBIN 11.5 g/dL (14.0-18.0); LYMPHOCYTES # (AUTO) 0.7 10^3/uL (1.5-3.5); LYMPHOCYTES % (AUTO) 20.6 %; MEAN CORPUSCULAR HEMOGLOBIN 34.5 pg (27.0-31.0); MEAN CORPUSCULAR VOLUME 104.5 fL (80.0-94.0); MEAN PLATELET VOLUME 10.1 fL (7.4-11.4); MONOCYTES # (AUTO) 0.8 10^3/uL (0.0-1.0); MONOCYTES % (AUTO) 22.7 %; NEUTROPHILS # (AUTO) 1.8 10^3/uL (1.5-6.6); NEUTROPHILS % (AUTO) 51.9 %; PLT - PLATELET COUNT 195 10^3/uL (130-450); RED BLOOD COUNT 3.33 10^6/uL (4.70-6.10); RED CELL DISTRIBUTION WIDTH 19.2 % (12.0-15.0); WHITE BLOOD COUNT 3.4 x10^3/uL (4.8-10.8)
[2020-03-03 09:50] LABS: ALBUMIN/GLOBULIN RATIO 1.5 (1.0-2.2); BILIRUBIN,TOTAL 0.5 mg/dL (0.2-1.0); CALCIUM 9.5 mg/dL (8.5-10.3); CREATININE 0.8 mg/dL (0.6-1.2); TOTAL PROTEIN 6.7 g/dL (6.7-8.2)
== END 2020-03-03 09:07 | disposition home or self-care (01) ==
LOC: LAB 09:06
PROVIDERS: ATTEND Internal Medicine Hematology & Oncology
DX: C85.90 Non-Hodgkin lymphoma, unspecified, unspecified site (principal)
CPT/HCPCS: 36415; 80053; 85025

== ENCOUNTER 2020-04-14 10:53 | Outpatient (CLI) | payer MEDICARE ==
[2020-04-14 11:16] LABS: EOSINOPHILS % (AUTO) 0.7 %; HGB - HEMOGLOBIN 11.8 g/dL (14.0-18.0); LYMPHOCYTES # (AUTO) 0.6 10^3/uL (1.5-3.5); LYMPHOCYTES % (AUTO) 20.3 %; MEAN CORPUSCULAR HEMOGLOBIN 36.1 pg (27.0-31.0); MEAN CORPUSCULAR HGB CONC 33.5 g/dL (32.0-36.0); MEAN CORPUSCULAR VOLUME 107.6 fL (80.0-94.0); MEAN PLATELET VOLUME 10.2 fL (7.4-11.4); MONOCYTES # (AUTO) 0.8 10^3/uL (0.0-1.0); MONOCYTES % (AUTO) 25.2 %; NEUTROPHILS # (AUTO) 1.6 10^3/uL (1.5-6.6); NEUTROPHILS % (AUTO) 52.1 %; PLT - PLATELET COUNT 199 10^3/uL (130-450); RED BLOOD COUNT 3.27 10^6/uL (4.70-6.10); RED CELL DISTRIBUTION WIDTH 16.9 % (12.0-15.0); WHITE BLOOD COUNT 3.1 x10^3/uL (4.8-10.8)
[2020-04-14 11:27] LABS: ALBUMIN 4.1 g/dL (3.2-5.5); ALBUMIN/GLOBULIN RATIO 1.4 (1.0-2.2); BILIRUBIN,TOTAL 0.6 mg/dL (0.2-1.0); CALCIUM 9.5 mg/dL (8.5-10.3); CREATININE 0.8 mg/dL (0.6-1.2)
== END 2020-04-14 10:54 | disposition home or self-care (01) ==
LOC: LAB 10:53
PROVIDERS: ATTEND Internal Medicine Hematology & Oncology
DX: C85.90 Non-Hodgkin lymphoma, unspecified, unspecified site (principal); Z51.11 Encounter for antineoplastic chemotherapy
CPT/HCPCS: 36415; 80053; 85025

== ENCOUNTER 2020-04-20 14:32 | Outpatient (CLI) | payer MEDICARE ==
--- NOTE | 2020-04-20 17:40 | MRI Report ---
PROCEDURE: Femur/Thigh RT W/O INDICATIONS: RT LEG PAIN TECHNIQUE: Noncontrast coronal and sagittal T1 spin echo and STIR; axial T1 spin echo and T2 fast spin echo with fat saturation through the . COMPARISON: None. FINDINGS: Image quality: Excellent. Bones: The visualized bone marrow demonstrates normal signal on all sequences. The overlying cortex appears intact. No fractures lines or intra-osseous lesions. Soft tissues: The scanned muscles demonstrate normal overall bulk and internal signal. Subcutaneous tissues appear normal as well. No soft tissue masses are present. There is a small Brown cyst at t he posterior medial knee, on the right. This measures only 1.3 cm AP and 1.9 cm transverse. IMPRESSION: No marrow lesion is identified that would indicate trauma or tumor infiltration. No musc ular injury 1.3 x 1.9 cm. No adenopathy is seen. Reviewed by: Shalom Scott MD on 04/20/2020 5:39 PM PDT Approved by: Shalom Scott MD on 04/20/2020 5:39 PM PDT Station ID: [id number]
--- NOTE | 2020-04-20 17:57 | MRI Report ---
PROCEDURE: Hip RT W/O INDICATIONS: RT LEG PAIN TECHNIQUE: Noncontrast coronal T1 spin echo and STIR through the bony pelvis. Coronal and axial T2 fast spin ec ho with fat saturation, sagittal T1 spin echo, and oblique axial T2 fast spin echo with fat saturatio n through the hip. COMPARISON: None. FINDINGS: Image quality: Excellent. Bones and joints: Right worse than left bilateral hip joint osteoarthritic changes are seen with supe rior articulating surface narrowing, subchondral sclerosis and small marginal osteophyte formation. T here is no intraosseous lesions or fractures. No avascular necrosis of the femoral heads. The visua lized lower lumbar spine appears normally aligned. Tendons: The gluteus medius and minimus tendons appear intact, without associated muscle atrophy. T he iliopsoas tendon appears intact, without adjacent bursal fluid collections. The origin of the ham string tendon is intact at the ischial tuberosity. Labrum and cartilage: There is suggestion of subtle superior anterior right hip labral tear in the ab sence of intra-articular contrast. Cartilage surface of the femoral head appears thinned. The alpha angle of the femur is within normal limits at less than 55 degrees. Soft tissues: Visualized muscles demonstrate normal bulk and internal signal. The proximal sciatic neurovascular bundle appears normal adjacent to the hamstring tendons. No free pelvic fluid. Bladde r wall thickness is normal. Genitourinary structures and bowel loops appear normal where visualized. IMPRESSION: 1. Right Worster left bilateral hip joint osteoarthritic changes. No hip fracture or dislocation. No suspicious intraosseous lesion. No evidence of avascular necrosis of femoral head. 2. No gross muscle or tendon signal abnormality. No significant joint effusion. 3. Subtle signal abnormality in superior anterior right hip labrum is seen concerning for subtle labr al tear. Reviewed by: Son White MD on 04/20/2020 5:56 PM PDT Approved by: Son White MD on 04/20/2020 5:56 PM PDT Station ID: [id number]
--- NOTE | 2020-04-20 18:05 | MRI Report ---
PROCEDURE: Knee RT W/O INDICATIONS: RT LEG PAIN. History of lymphoma. TECHNIQUE: Noncontrast sagittal PD fast spin echo and T2 fast spin echo with fat saturation, sagittal 3-D gradie nt sequence with fat saturation; coronal T1 spin echo and PD fast spin echo with fat saturation, and axial PD fast spin echo with fat saturation through the knee. COMPARISON: Right knee x-ray 07/17/2017. FINDINGS: Image quality: Diagnostic. Menisci: There is a horizontally oriented longitudinal tear in the posterior horn of the medial meni scus involving the inferior articular surface. The lateral meniscus appears intact. The meniscal root ligaments appear intact. Cruciate ligaments: The anterior and posterior cruciate ligaments appear intact. Medial structures: The medial collateral ligament appears intact. The semimembranosus tendon insert ions appear intact. Visualized portions of the pes anserinus tendons appear normal. No abnormal bur allan fluid. Lateral structures: The fibular collateral ligament and biceps femoris tendon appear intact. The po pliteal tendon and the meniscofemoral ligaments appear intact. Anterior structures: The quadriceps and patellar tendons appear intact. There is mild tendinopathy in the proximal patella tendon. Patellar alignment is normal. No femoral trochlear dysplasia or vent ral trochlear prominence. Bones and cartilage: No bone marrow contusions or fractures. The articular cartilage appears grossly preserved in thickness. There is mild chondral heterogeneity within the medial and lateral compartme nts. Joint space: There is physiologic knee joint fluid. There is a small Brown?s cyst. An enlarged lymp h node is demonstrated in the popliteal fossa measuring up to 1.5 cm in short axis. IMPRESSION: 1. Tear in the posterior horn of the medial meniscus. 2. Mild tendinopathy in the proximal patella tendon. 3. Enlarged lymph node in the popliteal fossa may reflect patient's history of lymphoma. 4. Reviewed by: Layton Rangel MD on 04/20/2020 6:03 PM PDT Approved by: Layton Rangel MD on 04/20/2020 6:03 PM PDT Station ID: [id number]
== END 2020-04-20 14:33 | disposition home or self-care (01) ==
LOC: DI 14:32
PROVIDERS: ATTEND Nurse Practitioner Family
DX: S83.241A Other tear of medial meniscus, current injury, right knee, initial encounter (principal); M67.863 Other specified disorders of tendon, right knee; R59.0 Localized enlarged lymph nodes; M16.0 Bilateral primary osteoarthritis of hip

== ENCOUNTER 2020-04-21 14:36 | Outpatient (CLI) | payer MEDICARE ==
--- NOTE | 2020-04-21 16:25 | MRI Report ---
PROCEDURE: Pelvis W/O INDICATIONS: SACROCOCCYGEAL DISORDERS TECHNIQUE: Noncontrast coronal T1 spin echo and STIR through the bony pelvis. Sagittal T2 FSE with fat saturati on, oblique axial PD FSE and T2 FSE with fat saturation through the symphysis pubis. COMPARISON: None. FINDINGS: Image quality: Excellent. Scanning through the sacroiliac joints bilaterally was performed. The sacrum also was evaluated in cari th axial, coronal and sagittal imaging. Note is made of no marrow edema or presacral inflammation wit hin the extraperitoneal fat in that area. No nerve root impingement is found. Moderate degenerative d isc disease is noted at L4-5 with a posterior disc bulge producing what appears to be mild to moderat e focal spinal stenosis at L4-5 best seen on the sagittal imaging. IMPRESSION: No trauma found, no sign of inflammation involving the presacral soft tissues, or the marrow space. M oderate degenerative disc disease L4-5 as discussed above with secondary narrowing of the spinal kalr l at that level to a mild to moderate degree. Reviewed by: Shalom Scott MD on 04/21/2020 4:24 PM PDT Approved by: Shalom Scott MD on 04/21/2020 4:24 PM PDT Station ID: [id number]
== END 2020-04-21 14:37 | disposition home or self-care (01) ==
LOC: DI 14:36
PROVIDERS: ATTEND Physician Assistant
DX: M53.3 Sacrococcygeal disorders, not elsewhere classified (principal); M51.36 Other intervertebral disc degeneration, lumbar region
CPT/HCPCS: 72195

== ENCOUNTER 2021-07-04 14:07 | Outpatient (CLI) | payer MEDICARE, OTHER ==
--- NOTE | 2021-07-04 16:46 | DEXA Report ---
PROCEDURE: Dexa Spine and/or Hip INDICATIONS: OSTEOPOROSIS TECHNIQUE: Dual energy x-ray absorptiometry (DXA) was performed on a [employer] System. Regions measur ed are the AP Spine, femoral neck, and if needed forearm. COMPARISON: 06/09/2019 and 12/31/2016. FINDINGS: Lumbar Spine: Bone Mineral Density 1.054 g/cm/cm,T score -1.4, osteopenia Left Hip: Bone Mineral Density 0.861 g/cm/cm,T score -1.7, osteopenia Left Femoral Neck: Bone Mineral Density 0.885 g/cm/cm, T score -1.4, osteopenia (T score greater or equal to -1.0: NORMAL) (T score from -1.1 to -2.4: OSTEOPENIA) (T score less than or equal to -2.5 to: OSTEOPOROSIS) Impression: Osteopenia. Bone mineral density has decreased 1.5% the interval since prior exam obtaine d 06/09/2019. Patients with diagnosis of osteoporosis or osteopenia should have regular bone mineral density assess ment. For those eligible for Medicare, routine testing is allowed once every 2 years. Testing frequ ency can be increased for patients who have rapidly progressing disease or for those who are receivin g medical therapy to restore bone mass. Reviewed by: Eladia Gill MD, PhD on 07/04/2021 4:45 PM PST Approved by: Eladia Gill MD, PhD on 07/04/2021 4:45 PM PST Station ID: [id number]
== END 2021-07-04 14:08 | disposition home or self-care (01) ==
LOC: DI 14:07
PROVIDERS: ATTEND Registered Nurse
DX: M81.0 Age-related osteoporosis without current pathological fracture (principal)

== ENCOUNTER 2023-01-01 07:38 | Day surgery (SDC) | payer MEDICARE ==
[2023-01-01] MEDS ORDERED: LACTATED RINGERS 1,000 ML IV ONE ×2 (08:01→09:22)
--- NOTE | 2023-01-01 08:10 | ANESTHESIA ---
Pre-Anesthesia VS, & Labs - Diagnosis screening - Procedure colonoscopy Vital Signs: Temp Pulse Resp BP Pulse Ox O2 Flow Rate 36.2 C L 76 12 126/87 H 100 01/01/23 07:58 01/01/23 07:58 01/01/23 07:58 01/01/23 07:58 01/01/23 07:58 Height: 5 ft 8.5 in Weight (kg): 73 kg Body Mass Index: 24.0 BMI Classification: Normal - NPO >8 hours - Lab Results Lab results reviewed: Yes Home Medications and Allergies Venlafaxine HCl [Effexor Xr] 50 mg PO DAILY 01/09/20 Allergies/Adverse Reactions: Allergies Allergy/AdvReac Type Severity Reaction Status Date / Time Sulfa (Sulfonamide Allergy Anaphylaxis Verified 04/17/20 09:00 Antibiotics) lactose AdvReac Cramps Verified 04/17/20 09:00 Penicillins AdvReac Hives Verified 04/17/20 09:00 Anes History & Medical History - Anesthetic History Anesthesia Complications: reports: No previous complications Family history of Anesthesia Complications: Denies Family history of Malignant Hyperthermia: Denies - Medical History Cardiovascular: reports: None Pulmonary: reports: None Gastrointestinal: reports: GERD, Other Urinary: reports: None Neuro: reports: Migraines Musculoskeletal: reports: None Endocrine/Autoimmune: reports: None Blood Disorders: reports: None Skin: reports: None Smoking Status: Never smoker - Surgical History General: reports: Appendectomy Exam General: Alert, Oriented x3, Cooperative Dental: WNL Neck Mobility: Normal Mallampati classification: II Thyromental Distance: 4-6 cm Respiratory: Lungs clear Cardiovascular: Regular rate Plan Anesthesia Type: General, MAC Consent for Procedure(s) Verified and Reviewed: Yes Code Status: Attempt Resuscitation ASA classification: 1-Healthy patient Is this case an emergency?: No
[2023-01-01] MEDS ORDERED: PROPOFOL 500 MG/50 ML 500 MG/50 ML VIAL ONE (08:15)
[2023-01-01] MEDS ORDERED: PROPOFOL 200 MG/20 ML VIAL IVP ONE (09:23)
[2023-01-01 10:37] VITALS: BP 107/64
[2023-01-01] MEDS ORDERED: ONDANSETRON 4 MG/2 ML VIAL ONE (10:38)
--- NOTE | 2023-01-01 11:38 | CT Report ---
PROCEDURE: ABDOMEN/PELVIS WO INDICATIONS: Incomplete colonoscopy TECHNIQUE: A CT scan of the abdomen and pelvis was performed after rectal infusion of Gastrografin contrast. Im ages were recorded and evaluated at appropriate window settings. Reformats: coronal and sagittal. For radiation dose reduction, the following was used: automated exposure control, adjustment of mA and/o r kV according to patient size. COMPARISON: MRI of the pelvis dated 04/21/2020 CT of abdomen and pelvis dated 01/12/2020. FINDINGS: Image quality: Excellent. Lung bases and heart: Unremarkable. Liver: Patient's known hypodense lesions within liver parenchyma are less well seen and are grossly u nchanged in size and appearance compared to previous study however currently study is limited due to lack of IV contrast. Gallbladder and biliary tree: The gallbladder is within normal limits. There is no biliary ductal dil atation. Spleen: No splenomegaly. Pancreas: No pancreatic ductal dilation. Adrenals: No adrenal nodule. Kidneys and ureters: 3 mm nonobstructing stone is seen in mid pole of right kidney. No hydronephrosis . No renal cystic lesion which requires follow up. No solid mass. Bowel and peritoneum: There is no bowel obstruction. No peritoneal free air. No pathologic free fluid .. There is adequate contrast distention of the colonic loops extending to the level of sigmoid colon . No contrast refluxes into the terminal ileum is noted. No gross intraluminal filling defect to sugg est a colonic polyp. No abnormal bowel wall thickening. Lymph nodes: No central or retroperitoneal adenopathy. Vessels: No infrarenal aortic aneurysm. PELVIS Reproductive organs: Unremarkable. Bladder: No wall thickness, accounting for underdistention. Pelvic lymph nodes: No pelvic adenopathy by size criteria. Bones: No aggressive osseous abnormality. Other: No significant ventral or inguinal hernia. IMPRESSION: 1. Normal contrast opacification of the colon without gross intraluminal filling defect to suggest co lonic polyp. No abnormal bowel wall thickening. No bowel obstruction. No free fluid or free air. 2. Patient's known hypodense lesions scattered in the liver are less well seen due to lack of IV cont rast on the current study. Overall size and number of the lesion are stable or decreased compared to previous study. 3. No abdominal or pelvic lymphadenopathy. . No obstructing renal stones or hydronephrosis. Reviewed by: Son White MD on 01/01/2023 11:37 AM PDT Approved by: Son White MD on 01/01/2023 11:37 AM PDT Station ID: [id number]
--- NOTE | 2023-01-01 11:56 | ANESTHESIA POST OP EVALUATION ---
Anesthesia Post Eval - Post Anesthesia Eval Vitals: Last Vital Signs Temp 36.4 C L 01/01/23 10:36 Pulse 72 01/01/23 10:36 Resp 14 01/01/23 10:36 BP 107/64 01/01/23 10:36 Pulse Ox 100 01/01/23 10:36 O2 Flow Rate CV Function Including HR & BP: Stable Pain Control: Satisfactory Nausea & Vomiting: Negative Mental Status: Baseline Respiratory Status: Airway Patent Hydration Status: Satisfactory Anesthesia Complications: None
== END 2023-01-01 07:39 | disposition home or self-care (01) ==
LOC: SDS 07:38
PROVIDERS: ATTEND Surgery
PROC: 0DJD8ZZ Inspection of Lower Intestinal Tract, Via Natural or Artificial Opening Endoscopic (ICD-10-PCS; principal; 2023-01-01 08:45)
DX: Z12.11 Encounter for screening for malignant neoplasm of colon (principal); K64.1 Second degree hemorrhoids; Z86.010 Personal history of colon polyps
CPT/HCPCS: 45378; 74176; J7120

== ENCOUNTER 2023-09-02 14:12 | Outpatient (CLI) | payer MEDICARE ==
--- NOTE | 2023-09-02 20:07 | DEXA Report ---
PROCEDURE: Dexa Spine and/or Hip INDICATIONS: OSTEOPOROSIS TECHNIQUE: Dual energy x-ray absorptiometry (DXA) was performed on a [employer] System. Regions measur ed are the AP Spine, femoral neck, and if needed forearm. COMPARISON: DEXA 07/04/2021, 06/09/2019. FINDINGS: Lumbar Spine: Bone Mineral Density: 1.064 g/cm/cm, T score: -1.2. Since the most recent prior study, there has bee n a statistically significant increase in bone mineral density by 4.1 percent. Left Femoral Neck: Bone Mineral Density: 0.881 g/cm/cm, T score: -1.5. Left Hip: Bone Mineral Density: 0.866 g/cm/cm, T score: -1.6. There has been no statistically significant sotomayor e in bone mineral density since the prior study. (T score greater or equal to -1.0: NORMAL) (T score from -1.1 to -2.4: OSTEOPENIA) (T score less than or equal to -2.5 to: OSTEOPOROSIS) Impression: By WHO criteria, this patient has low bone density (osteopenia). Interval statistical increase in bone mineral density of the lumbar spine. No statistical interval change in bone mineral density of the hip. Patients with diagnosis of osteoporosis or osteopenia should have regular bone mineral density assess ment. For those eligible for Medicare, routine testing is allowed once every 2 years. Testing frequ ency can be increased for patients who have rapidly progressing disease or for those who are receivin g medical therapy to restore bone mass. Reviewed by: Johnson Beyer MD on 09/02/2023 8:06 PM PDT Approved by: Johnson Beyer MD on 09/02/2023 8:06 PM PDT Station ID: [id number]
== END 2023-09-02 14:13 | disposition home or self-care (01) ==
LOC: DI 14:12
PROVIDERS: ATTEND Registered Nurse
DX: M85.89 Other specified disorders of bone density and structure, multiple sites (principal)